=== PATIENT | female | born 1970 | race Caucasian/White ===

== ENCOUNTER → 2017-05-04 | Outpatient (CLI) | payer OTHER | LOC: FIMAGING 15:47 | PROVIDERS: ATTEND Obstetrics & Gynecology | DX: Z12.31 Encounter for screening mammogram for malignant neoplasm of breast (principal); Z80.3 Family history of malignant neoplasm of breast | CPT/HCPCS: G0202 ==

== ENCOUNTER → 2018-05-24 | Outpatient (CLI) | payer OTHER | LOC: FIMAGING 08:05 | PROVIDERS: ATTEND Obstetrics & Gynecology | DX: Z12.31 Encounter for screening mammogram for malignant neoplasm of breast (principal); Z80.3 Family history of malignant neoplasm of breast ==

== ENCOUNTER 2018-09-05 19:38 | Observation (INO) | payer OTHER ==
[2018-09-05] MEDS ORDERED: NS 1,000 ML IV ONE (19:58)
[2018-09-05] MEDS ORDERED: ASPIRIN 81 MG CHEWABLE TAB PO ONE (20:03)
--- NOTE | 2018-09-05 20:11 | EDPHY ---
H & P Stated Complaint: l chest wall pain since 6 p.m. worse with deep breath or movement Time Seen by Provider: 09/05/18 19:54 HPI/ROS: CHIEF COMPLAINT: Chest pain HISTORY OF PRESENT ILLNESS: The patient is a 47-year-old healthy female who comes to the emergency department complaining of sudden onset chest pain 615 this evening. She states that this happens to her periodically but usually resolves after few minutes. She was seen in the ER 2 years ago for similar symptoms and had a negative workup. She states that she has pain with deep inspiration. Also with movement of her shoulder. She denies trauma. She has not had any recent surgery procedures or travel. She does have an IUD the secreted hormones. She is not a smoker. No leg pain or swelling. No history of cardiac disease or pulmonary disease. No recent illness or fevers. Severity: Severe, sharp Modifying factors: Worse with deep inspiration or movement REVIEW OF SYSTEMS: Constitutional: denies: chills, fever, recent illness, recent injury EENTM: denies: blurred vision, double vision, nose congestion Respiratory: See HPI denies: cough, shortness of breath Cardiac: See HPI denies: irregular heart rate, lightheadedness, palpitations Gastrointestinal/Abdominal: denies: abdominal pain, diarrhea, nausea, vomiting, blood streaked stools Genitourinary: denies: dysuria, frequency, hematuria, pain Musculoskeletal: denies: joint pain, muscle pain Skin: denies: lesions, rash, jaundice, bruising Neurological: denies: headache, numbness, paresthesia, tingling, dizziness, weakness Hematologic/Lymphatic: denies: blood clots, easy bleeding, easy bruising Immunologic/allergic: denies: HIV/AIDS, transplant 10 systems reviewed and negative except as noted EXAM: GENERAL: Uncomfortable, moderate distress HEAD: Atraumatic, normocephalic. EYES: Pupils equal round and reactive to light, extraocular movements intact, sclera anicteric, conjunctiva are normal. ENT: TMs normal, nares patent, oropharynx clear without exudates. Moist mucous membranes. NECK: Normal range of motion, supple without lymphadenopathy or JVD. LUNGS: Breath sounds clear to auscultation bilaterally and equal. No wheezes rales or rhonchi. HEART: Tenderness to left chest wall, pain with movement of left arm, Regular rate and rhythm without murmurs, rubs or gallops. ABDOMEN: Soft, nontender, normoactive bowel sounds. No guarding, no rebound. No masses appreciated. BACK: No CVA tenderness, no spinal tenderness, step-offs or deformities EXTREMITIES: Normal range of motion, no pitting or edema. No clubbing or cyanosis. NEUROLOGICAL: Cranial nerves II through XII grossly intact. Normal speech, normal gait. 5/5 strength, normal movement in all extremities, normal sensation , normal reflexes PSYCH: Normal mood, normal affect. SKIN: Warm, dry, normal turgor, no visible rashes or lesions. Source: Patient, Old records Exam Limitations: No limitations - Personal History LMP (Females 10-55): IUD In Place Current Tetanus/Diphtheria Vaccine: Yes Current Tetanus Diphtheria and Acellular Pertussis (TDAP): Yes - Medical/Surgical History Hx Asthma: No Hx Chronic Respiratory Disease: No Hx Diabetes: No Hx Cardiac Disease: No Hx Renal Disease: No Hx Cirrhosis: No Hx Alcoholism: No Hx HIV/AIDS: No Hx Splenectomy or Spleen Trauma: No Other PMH: l foot surgery - Family History Significant Family History: No pertinent family hx - Social History Smoking Status: Never smoked Alcohol Use: None Constitutional: Initial Vital Signs Temperature (C) 36.8 C 09/05/18 19:45 Heart Rate 74 09/05/18 19:45 Respiratory Rate 16 09/05/18 19:45 Blood Pressure 132/92 H 09/05/18 19:45 O2 Sat (%) 99 09/05/18 19:45 O2 Delivery Mode Room Air Allergies/Adverse Reactions: No Known Allergies Allergy (Verified 09/05/18 19:50) Home Medications: Medication Instructions Recorded Ascorbic Acid [Vitamin C 250 mg 250 mg PO DAILY 09/05/18 (*)] Cholecalciferol Vit D3 [Vitamin D3 1,000 units PO DAILY 09/05/18 (*)] Cyanocobalamin [Vitamin B12 1,000 mcg IM .EVERY 8 WEEKS 09/05/18 1000MCG/ML (*)] Herbals/Supplements -Info Only 1 ea PO DAILY 09/05/18 Ibuprofen/Diphenhydramine Cit 1 each PO HS PRN 09/05/18 [Advil Pm Caplet] Medical Decision Making - Diagnostics EKG Interpretation: An EKG obtained and was read and documented in trace view. Please see trace view for full reading and report. Sinus rhythm, no acute ischemic changes, unchanged from previous A repeat EKG obtained and was read and documented in trace view. Please see trace view for full reading and report. Sinus rhythm, no acute ischemic changes , similar to previous Imaging Results: Imaging Impressions Chest X-Ray 09/05/18 20:09 Impression: Possible papillary muscle dysfunction. The chest x-ray looks similar to 2009. Results discussed with Dr. Adams. Imaging: Discussed imaging studies w/ manager cosmetic Radiologist ED Course/Re-evaluation: 9:00 p.m. the patient continues to have pain. Will repeat EKG. Initial lab work and imaging is reassuring. We engaged in shared decision making. We agreed to admit her for repeat troponins overnight possibly stress test in the morning. I will add Toradol. I discussed the case with Dr. Lopez who will admit. Differential Diagnosis: Partial list of the Differential diagnosis considered include but were not limited to; musculoskeletal pain, PE, acute coronary disease, pleurisy and although unlikely based on the history and physical exam, I also considered pneumothorax,. - Data Points Laboratory Results: Laboratory Results 09/05/18 18:50 09/05/18 18:50 09/05/18 09/05/18 09/05/18 19:54 18:50 18:50 WBC RBC Hgb Hct 38.8 % % (38.0-47.0) MCV MCH MCHC RDW Plt Count MPV Neut % (Auto) Lymph % (Auto) [place] % (Auto) Eos % (Auto) Baso % (Auto) Nucleat RBC Rel Count Absolute Neuts (auto) Absolute Lymphs (auto) Absolute Monos (auto) Absolute Eos (auto) Absolute Basos (auto) Absolute Nucleated RBC Immature Gran % Immature Gran # ESR 5 MM/HR MM/HR (0-20) PT INR APTT D-Dimer Sodium Potassium Chloride Carbon Dioxide Anion Gap BUN Creatinine Estimated GFR Glucose Calcium Total Bilirubin Conjugated Bilirubin Unconjugated Bilirubin AST ALT Alkaline Phosphatase POC Troponin I 0.00 ng/mL ng/mL (0.00-0.08) C-Reactive Protein < 5.0 mg/L mg/L (<10.0) Total Protein Albumin Lipase Beta HCG, Qual 09/05/18 09/05/18 09/05/18 18:50 18:50 18:50 WBC RBC Hgb Hct MCV MCH MCHC RDW Plt Count MPV Neut % (Auto) Lymph % (Auto) [place] % (Auto) Eos % (Auto) Baso % (Auto) Nucleat RBC Rel Count Absolute Neuts (auto) Absolute Lymphs (auto) Absolute Monos (auto) Absolute Eos (auto) Absolute Basos (auto) Absolute Nucleated RBC Immature Gran % Immature Gran # ESR PT 14.3 SEC SEC (12.0-15.0) INR 1.09 (0.83-1.16) APTT 30.3 SEC SEC (23.0-38.0) D-Dimer 0.36 ug/mLFEU ug/mLFEU (0.00-0.50) Sodium 136 mEq/L mEq/L (135-145) Potassium 4.4 mEq/L mEq/L (3.5-5.2) Chloride 102 mEq/L mEq/L (97-110) Carbon Dioxide 26 mEq/l mEq/l (22-31) Anion Gap 8 mEq/L mEq/L (6-14) BUN 21 mg/dL mg/dL (7-23) Creatinine 0.9 mg/dL mg/dL (0.6-1.0) Estimated GFR > 60 Glucose 74 mg/dL mg/dL (70-100) Calcium 9.9 mg/dL mg/dL (8.5-10.4) Total Bilirubin 0.4 mg/dL mg/dL (0.1-1.4) Conjugated Bilirubin 0.1 mg/dL mg/dL (0.0-0.5) Unconjugated Bilirubin 0.3 mg/dL mg/dL (0.0-1.1) AST 41 IU/L IU/L (14-46) ALT 32 IU/L IU/L (9-52) Alkaline Phosphatase 72 IU/L IU/L (38-126) POC Troponin I C-Reactive Protein Total Protein 8.0 g/dL g/dL (6.3-8.2) Albumin 4.5 g/dL g/dL (3.5-5.0) Lipase 167 IU/L IU/L (23-300) Beta HCG, Qual NEGATIVE 09/05/18 18:50 WBC 7.11 10^3/uL 10^3/uL (3.80-9.50) RBC 4.06 10^6/uL L 10^6/uL (4.18-5.33) Hgb 12.9 g/dL g/dL (12.6-16.3) Hct 39.0 % % (38.0-47.0) MCV 96.1 fL fL (81.5-99.8) MCH 31.8 pg pg (27.9-34.1) MCHC 33.1 g/dL g/dL (32.4-36.7) RDW 13.7 % % (11.5-15.2) Plt Count 262 10^3/uL 10^3/uL (150-400) MPV 10.0 fL fL (8.7-11.7) Neut % (Auto) 52.3 % % (39.3-74.2) Lymph % (Auto) 34.7 % % (15.0-45.0) [place] % (Auto) 10.4 % % (4.5-13.0) Eos % (Auto) 1.7 % % (0.6-7.6) Baso % (Auto) 0.6 % % (0.3-1.7) Nucleat RBC Rel Count 0.0 % % (0.0-0.2) Absolute Neuts (auto) 3.72 10^3/uL 10^3/uL (1.70-6.50) Absolute Lymphs (auto) 2.47 10^3/uL 10^3/uL (1.00-3.00) Absolute Monos (auto) 0.74 10^3/uL 10^3/uL (0.30-0.80) Absolute Eos (auto) 0.12 10^3/uL 10^3/uL (0.03-0.40) Absolute Basos (auto) 0.04 10^3/uL 10^3/uL (0.02-0.10) Absolute Nucleated RBC 0.00 10^3/uL 10^3/uL (0-0.01) Immature Gran % 0.3 % % (0.0-1.1) Immature Gran # 0.02 10^3/uL 10^3/uL (0.00-0.10) ESR PT INR APTT D-Dimer Sodium Potassium Chloride Carbon Dioxide Anion Gap BUN Creatinine Estimated GFR Glucose Calcium Total Bilirubin Conjugated Bilirubin Unconjugated Bilirubin AST ALT Alkaline Phosphatase POC Troponin I C-Reactive Protein Total Protein Albumin Lipase Beta HCG, Qual Medications Given: Ketorolac Tromethamine (Toradol) 15 mg IVP Q6H TALA Stop: 09/11/18 02:59 Last Admin: 09/06/18 03:47 Dose: 15 mg Morphine Sulfate (Morphine) 1 - 2 mg IVP Q3HRS PRN PRN Reason: Pain, Severe Unable to Take PO Stop: 09/15/18 21:44 Last Admin: 09/06/18 00:20 Dose: 2 mg Discontinued Medications Aspirin (Aspirin) 324 mg PO EDNOW ONE Stop: 09/05/18 20:04 Last Admin: 09/05/18 20:15 Dose: 324 mg Sodium Chloride (Ns) 1,000 mls @ 0 mls/hr IV EDNOW ONE; Wide Open PRN Reason: Protocol Stop: 09/05/18 19:59 Last Admin: 09/05/18 20:16 Dose: 1,000 mls Ketorolac Tromethamine (Toradol) 30 mg IVP EDNOW ONE Stop: 09/05/18 20:52 Last Admin: 09/05/18 21:03 Dose: 30 mg Morphine Sulfate (Morphine) 4 mg IVP EDNOW ONE Stop: 09/05/18 20:04 Last Admin: 09/05/18 20:16 Dose: 4 mg Point of Care Test Results: Chemistry 09/05/18 19:54 POC Troponin I 0.00 ng/mL ng/mL (0.00-0.08) Departure - Departure Disposition: [facility] Inpatient Acute Clinical Impression: Chest pain Qualifiers: Chest pain type: unspecified Qualified Code(s): R07.9 - Chest pain, unspecified Condition: Fair
--- NOTE | 2018-09-05 20:11 | CPEKG ---
Test Reason : OPEN Blood Pressure : / mmHG Vent. Rate : 067 BPM Atrial Rate : 066 BPM P-R Int : 150 ms QRS Dur : 080 ms QT Int : 403 ms P-R-T Axes : 052 047 018 degrees QTc Int : 426 ms Sinus rhythm Probable left atrial enlargement Anteroseptal infarct, old Confirmed by Ac Adams ([id number]) on 09/05/2018 8:11:17 PM Referred By: Ac Adams Confirmed By:Ac Adams
[2018-09-05 20:18] LABS: PLATELET COUNT 262 10^3/uL (150-400)
[2018-09-05 20:48] LABS: INR 1.09 (0.83-1.16); PROTIME(PATIENT) 14.3 SEC (12.0-15.0)
[2018-09-05] MEDS ORDERED: KETOROLAC 30 MG/1 ML SDV IVP ONE (20:51)
--- NOTE | 2018-09-05 21:07 | CPEKG ---
Test Reason : OPEN Blood Pressure : / mmHG Vent. Rate : 062 BPM Atrial Rate : 061 BPM P-R Int : 146 ms QRS Dur : 083 ms QT Int : 413 ms P-R-T Axes : 050 034 010 degrees QTc Int : 420 ms Sinus rhythm Probable left atrial enlargement Confirmed by Ac Adams ([id number]) on 09/05/2018 9:06:14 PM Referred By: Ac Adams Confirmed By:Ac Adams
[2018-09-05] MEDS ORDERED: ACETAMINOPHEN 325 MG TAB PO PRN (21:45)
[2018-09-05] MEDS ORDERED: ONDANSETRON 4 MG/2 ML VIAL IVP PRN (21:45)
[2018-09-05] MEDS ORDERED: ONDANSETRON DISINTEGRATING 4 MG TAB PO PRN (21:45)
[2018-09-05] MEDS ORDERED: NITROGLYCERIN 0.4 MG BTL SL PRN (21:45)
--- NOTE | 2018-09-05 22:18 | PDGENHP ---
History and Physical - Chief Complaint chest pain - History of Present Illness Patient is a healthy 47 yo F presenting with several hours of chest pain. She notes it began abruptly at 615 this evening, was located over her left chest and worse with inspiration or movement of any kind. She describes it as intermittently sharp and with a constant component as well along with it. She has had similar sxs in the past, the last time was worked up in the ER here in 2014 with labs and CTA which was negative. She states since then she has not had a similar episode although she states she has had brief episodes of chest pain intermittently for years. When the pain is present she will have associated dizziness frequently, she has not had syncope. The pain is not reproducible with palpation. It did improve some with morphine. She has not had any recent illness. She exercises for at least one hour daily and does not get chest pain typically with exertion. History Information - Allergies/Home Medication List Allergies/Adverse Reactions: No Known Allergies Allergy (Verified 09/05/18 19:50) Home Medications: Ascorbic Acid [Vitamin C 250 mg (*)] 250 mg PO DAILY 09/05/18 [Last Taken Unknown] Cholecalciferol Vit D3 [Vitamin D3 (*)] 1,000 units PO DAILY 09/05/18 [Last Taken Unknown] Cyanocobalamin [Vitamin B12 1000MCG/ML (*)] 1,000 mcg IM .EVERY 8 WEEKS [Last Taken 08/08/18] Herbals/Supplements -Info Only 1 ea PO DAILY 09/05/18 [Last Taken Unknown] Ibuprofen/Diphenhydramine Cit [Advil Pm Caplet] 1 each PO HS PRN 09/05/18 [Last Taken Unknown] I have personally reviewed and updated: family history, medical history, social history, surgical history - Past Medical History no pertinent PMH - Surgical History Additional surgical history: prior foot surgeries - Family History Positive for: cancer (mother with breast cancer father with melanoma) - Social History Smoking Status: Never smoked Alcohol Use: Occasionally Drug Use: None Additional social history: single mom, works out frequently Review of Systems Review of Systems: ROS: 10pt was reviewed & negative except for what was stated in HPI & below Physical Exam Physical Exam: Temp Pulse Resp BP Pulse Ox 36.9 C 65 18 112/79 96 09/05/18 22:10 09/05/18 22:10 09/05/18 22:10 09/05/18 22:10 09/05/18 22:10 Constitutional: no apparent distress, appears nourished Eyes: PERRL, anicteric sclera Ears, Nose, Mouth, Throat: moist mucous membranes, hearing normal Cardiovascular: regular rate and rhythym, no murmur, rub, or gallop, No edema Respiratory: no respiratory distress, no rales or rhonchi Gastrointestinal: normoactive bowel sounds, soft, non-tender abdomen Genitourinary: no bladder tenderness Skin: warm, normal color Musculoskeletal: full muscle strength Neurologic: AAOx3 Psychiatric: interacting appropriately, not anxious, not encephalopathic Lab Data & Imaging Review 09/05/18 18:50 09/05/18 18:50 WBC 7.11 10^3/uL (3.80-9.50) 09/05/18 18:50 RBC 4.06 10^6/uL (4.18-5.33) L 09/05/18 18:50 Hgb 12.9 g/dL (12.6-16.3) 09/05/18 18:50 Hct 38.8 % (38.0-47.0) 09/05/18 18:50 MCV 96.1 fL (81.5-99.8) 09/05/18 18:50 MCH 31.8 pg (27.9-34.1) 09/05/18 18:50 MCHC 33.1 g/dL (32.4-36.7) 09/05/18 18:50 RDW 13.7 % (11.5-15.2) 09/05/18 18:50 Plt Count 262 10^3/uL (150-400) 09/05/18 18:50 MPV 10.0 fL (8.7-11.7) 09/05/18 18:50 Neut % (Auto) 52.3 % (39.3-74.2) 09/05/18 18:50 Lymph % (Auto) 34.7 % (15.0-45.0) 09/05/18 18:50 Glynn % (Auto) 10.4 % (4.5-13.0) 09/05/18 18:50 Eos % (Auto) 1.7 % (0.6-7.6) 09/05/18 18:50 Baso % (Auto) 0.6 % (0.3-1.7) 09/05/18 18:50 Nucleat RBC Rel Count 0.0 % (0.0-0.2) 09/05/18 18:50 Absolute Neuts (auto) 3.72 10^3/uL (1.70-6.50) 09/05/18 18:50 Absolute Lymphs (auto) 2.47 10^3/uL (1.00-3.00) 09/05/18 18:50 Absolute Monos (auto) 0.74 10^3/uL (0.30-0.80) 09/05/18 18:50 Absolute Eos (auto) 0.12 10^3/uL (0.03-0.40) 09/05/18 18:50 Absolute Basos (auto) 0.04 10^3/uL (0.02-0.10) 09/05/18 18:50 Absolute Nucleated RBC 0.00 10^3/uL (0-0.01) 09/05/18 18:50 Immature Gran % 0.3 % (0.0-1.1) 09/05/18 18:50 Immature Gran # 0.02 10^3/uL (0.00-0.10) 09/05/18 18:50 PT 14.3 SEC (12.0-15.0) 09/05/18 18:50 INR 1.09 (0.83-1.16) 09/05/18 18:50 APTT 30.3 SEC (23.0-38.0) 09/05/18 18:50 D-Dimer 0.36 ug/mLFEU (0.00-0.50) 09/05/18 18:50 Sodium 136 mEq/L (135-145) 09/05/18 18:50 Potassium 4.4 mEq/L (3.5-5.2) 09/05/18 18:50 Chloride 102 mEq/L (97-110) 09/05/18 18:50 Carbon Dioxide 26 mEq/l (22-31) 09/05/18 18:50 Anion Gap 8 mEq/L (6-14) 09/05/18 18:50 BUN 21 mg/dL (7-23) 09/05/18 18:50 Creatinine 0.9 mg/dL (0.6-1.0) 09/05/18 18:50 Estimated GFR > 60 09/05/18 18:50 Glucose 74 mg/dL (70-100) 09/05/18 18:50 Calcium 9.9 mg/dL (8.5-10.4) 09/05/18 18:50 Total Bilirubin 0.4 mg/dL (0.1-1.4) 09/05/18 18:50 Conjugated Bilirubin 0.1 mg/dL (0.0-0.5) 09/05/18 18:50 Unconjugated Bilirubin 0.3 mg/dL (0.0-1.1) 09/05/18 18:50 AST 41 IU/L (14-46) 09/05/18 18:50 ALT 32 IU/L (9-52) 09/05/18 18:50 Alkaline Phosphatase 72 IU/L (38-126) 09/05/18 18:50 POC Troponin I 0.00 ng/mL (0.00-0.08) 09/05/18 19:54 C-Reactive Protein < 5.0 mg/L (<10.0) 09/05/18 18:50 Total Protein 8.0 g/dL (6.3-8.2) 09/05/18 18:50 Albumin 4.5 g/dL (3.5-5.0) 09/05/18 18:50 Lipase 167 IU/L (23-300) 09/05/18 18:50 Beta HCG, Qual NEGATIVE 09/05/18 18:50 Visualized and Interpreted Chest x-ray results: Yes Chest X-Ray results: no infiltrate, other (per radiology read ? papillary muscle dysfunction) Visualized and Interpreted EKG results: Yes EKG Interpretation: Positive for: normal sinsus rhythm Assessment & Plan Assessment: Chest pain (Acute) 47 yo F with no significant PMH presenting with chest pain # chest pain: with no known cardiac risk factors and history atypical, initial w /u negative including trop and ecg. Heart score of 2. Overall this seems unlikely to be ACS however patient with continued pain that she rates as severe and describes as positional. D dimer negative, cxr with concern of papillary muscle dysfunction. Query endo/myocarditis versus costochondritis or other inflammatory condition. Will check esr/crp, trend trops overnight, serial ecg and echocardiogram in am. Given persistence of sxs and patients concern, will ask for cardiology to consult in the am and consider further ischemic w/u. # dizziness: without vertigo or syncope, monitoring on tele as above # abnormal cxr: as above radiology noting possible papillary muscle dysfunction , echo in am # observation status Patient new to my care. Old records reviewed and summarized as above. Care plan reviewed with ER doctor as above.
[2018-09-06] MEDS: KETOROLAC 15 MG/1 ML SDV IVP SCH ×2 (03:47→10:04)
[2018-09-06 04:48] VITALS: BP 114/74
[2018-09-06] MEDS ORDERED: ASPIRIN 325 MG TAB PO SCH (09:00)
--- NOTE | 2018-09-06 10:33 | HOSPPROG ---
Hospitalist Progress Note Objective: Vital Signs Temp Pulse Resp BP Pulse Ox 37.1 C 57 L 17 114/74 97 09/06/18 04:47 09/06/18 04:47 09/06/18 04:47 09/06/18 04:47 09/06/18 04:47 09/05/18 09/06/18 09/07/18 05:59 05:59 05:59 Intake Total 1600 Balance 1600 PT 14.3 SEC (12.0-15.0) 09/05/18 18:50 INR 1.09 (0.83-1.16) 09/05/18 18:50 ICD10 Worksheet Patient Problems: Problems Problem Status Onset Chest pain Acute
--- NOTE | 2018-09-06 10:57 | ECHO ---
[email or web address] [address] Main: [phone] Fax: Transthoracic Echocardiogram Name: NOE LEONARDO MR#: [id number] Study Date: 09/06/2018 Study Time: 07:50 AM Date of : 1970 Age: 47 year(s) Height: 170.2 cm (67 in.) Weight: 56.7 kg (125 lb.) BSA: 1.66 m2 Gender: Female Examination: Echo Indication: Positional chest pain, (breast implants) Image Quality: Adequate Contrast: Requested by: Penny Sánchez BP: 104 mmHg/61 mmHg Heart Rate: Rhythm: Indication: Positional chest pain, (breast implants) Procedure Staff Audio/Visual Operator: Rika Mullen [facility] Reading Physician: Lorin Lopez MD Requesting Provider: Cherie Martinez Conclusions: Normal size left ventricle. No LV hypertrophy. Normal global systolic LV function. The ejection fraction is estimated to be 65-70 %. No regional wall motion abnormality. Normal diastolic LV function. Normal size right ventricle. Mild tricuspid regurgitation is present. The pulmonary artery pressure is normal. No pericardial effusion. No prior echo Measurements: Chambers Valvular Assessment AV/MV Valvular Assessment TV/PV Normal Normal Normal Name Value Range Name Value Range Name Value Range Ao Alessandra (MM): 3.1 cm (2.2 cm-3.7 AV Vmax: 1.28 m/s (1 m/s-1.7 TR Vmax: 2.39 mm/s ( - ) cm) m/s) TR PGmax: 23 mmHg ( - ) IVSd (2D): 0.8 cm (0.6 cm-1.1 AV meanP mmHg ( - ) syst. PAP: 28 mmHg ( - ) cm) MV E Vmax: 0.68 m/s ( - ) LVDd (2D): 4.7 cm (3.9 cm-5.3 MV A Vmax: 0.38 m/s ( - ) cm) MV E/A: 1.79 ( - ) LVDs (2D): 2.9 cm (2.1 cm-4 cm) LVPWd (2D): 0.7 cm ( - ) LVEF (BP): 78 % (>=55 %) EF Range: 65-70 % Continued Measurements: Chambers Valvular Assessment AV/MV Valvular Assessment TV/PV Patient: NOE LEONARDO Study Date: 09/06/2018 Page 1 of 2 07:50 AM Name Value Name Value Name Value LADs: 3.5 cm MV E' Septal: 0.11 m/s CVP (est.): 5 mmHg LADs Lon.1 cm MV E/E' Septal: 6.40 LA Area: 16.9 cm2 MV E/E' Lateral: 4.70 LA Volume: 42 ml LA Volume Index: 25.3 ml/m2 Additional Vessels Name Value Ao Ascendin.9 cm Findings: Left Ventricle: Normal size left ventricle. No LV hypertrophy. Normal global systolic LV function. The ejection fraction is estimated to be 65-70 %. No regional wall motion abnormality. Normal diastolic LV function. Right Ventricle: Normal size right ventricle. Normal RV function. There is a moderator band noted in the right ventricle. Left Atrium: The left atrium is normal in size. Right Atrium: The right atrium is normal in size. Mitral Valve: The mitral valve is normal in appearance and function. Trivial mitral valve regurgitation. Aortic Valve: The aortic valve is normal in appearance and function. There is no aortic valve regurgitation. Tricuspid Valve: The tricuspid valve is normal in appearance and function. Mild tricuspid regurgitation is present. The pulmonary artery pressure is normal. RVSP is 28mmHG.. Pulmonic Valve: Pulmonary valve not well visualized. Aorta: The aorta is normal. Pericardium: No pericardial effusion. (No Signature Object) Patient: NOE LEONARDO Study Date: 09/06/2018 Page 2 of 2 07:50 AM [id number]
[2018-09-06] MEDS ORDERED: PANTOPRAZOLE SODIUM 40 MG TAB PO SCH (11:45)
--- NOTE | 2018-09-06 12:06 | GCON ---
[f rep st] CONSULTATION CARDIOLOGY CONSULT DATE OF CONSULTATION: 09/06/2018 PRIMARY CARE DOCTOR: Dr. Milan Thompson. CHIEF COMPLAINT: Chest pain. HISTORY OF PRESENT ILLNESS: We were asked by Dr. Martinez to visit with Torrie. The patient is a pleas ant 47-year-old female with no known cardiovascular disease and no significant past medical history. Yesterday evening, she had sudden onset of significant chest discomfort. This was pleuritic. She fe lt like she could not take a deep breath. When she leaned forward, the pain improved. She did not h ave palpitations or syncope with this. She had worked out at high intensity earlier the other day wi thout chest pain or other cardiac symptoms. Because her chest pain got worse, she came to the ER. T roponin has been negative. She has gotten some relief with 2 doses of Toradol. She reports 2 similar episodes in the past, 1 was evaluated in the ER with a negative workup and only lasted for a few hours. The other was self limited. She has not had any recent chest trauma. As m entioned, she works out regularly without chest pain. She has not had any abdominal symptoms. Two w eeks ago, she had a cold for about 5 days without fever. REVIEW OF SYSTEMS: A full 10-point review of systems is performed and is negative, except that which is outlined in the history of present illness. ALLERGIES: No known drug allergies. PAST MEDICAL HISTORY: She has had several surgeries on her feet. OUTPATIENT MEDICATIONS: None prescription. She does take vitamin C, B vitamins, vitamin D3. SOCIAL HISTORY: The patient has an 8-year-old son. Her . She does not smoke cigarettes . She drinks 1 glass of wine nightly. She denies illicit drugs. FAMILY HISTORY: Her mother has breast cancer. Father melanoma. PHYSICAL EXAM: VITAL SIGNS: Blood pressure 114/74, heart rate 57. Oxygen saturation 97% on room ai r. She is afebrile. GENERAL: A well-appearing middle-aged female in no acute distress. HEENT: Sc lerae are clear and free of jaundice. Mucous membranes are moist. Normocephalic, atraumatic. Scler ae are nonicteric. CARDIOVASCULAR: JVP is less than 10. Carotids equal and 2+ bilateral without br uit. Regular rate and rhythm without murmur, rub or gallop. LUNGS: Clear to auscultation bilateral ly without wheezes, rhonchi or rales. ABDOMEN: Soft, nontender, nondistended without bruits, masses or hepatosplenomegaly. EXTREMITIES: Warm and well perfused without cyanosis, clubbing or edema. I ntact distal pulses. NEURO: Alert and oriented x3 without gross focal neurological deficits. LABORATORY DATA: White count is normal. ESR is 5. D-dimer negative. INR 1.1. A comprehensive met abolic panel is normal. Troponin is negative x3. C-reactive protein is less than 5. Albumin 4.5. Lipase 167. Beta HCG negative. EKG reviewed by me shows sinus rhythm with no ischemic changes. Second EKG is also normal. Chest x-ray reviewed by me shows no acute cardiopulmonary process. Echocardiogram reviewed by me shows normal biventricular size and systolic function with normal wall motion. No significant valvular disease. No pericardial effusion. ASSESSMENT AND PLAN: A 47-year-old female with chest pain most consistent with pericarditis. This i s not acute coronary syndrome. PE and aortic pathology are also highly unlikely given the above-ment ioned laboratory and imaging studies. She has responded well to intravenous Toradol. Would recommend a 5- to 7-day course of scheduled nonsteroidal, such as Indocin or ibuprofen, along w ith proton pump inhibitor. She was asked to exercise only lightly without high intensity for 7-10 da ys as well. We are happy to see her on an as-needed basis. Case discussed with Dr. Martinez. /[id number]/MODL
--- NOTE | 2018-09-06 13:23 | GDS ---
[f rep st] DISCHARGE SUMMARY CHIEF COMPLAINT: 1. Chest pain. 2. Pericarditis. CONSULTATIONS: Cardiology. HISTORY OF PRESENT ILLNESS: A 47-year-old female with no significant past medical history, presenting with chest pain pleuritic in nature. Worse with deep inspiration and improved when leaning forward. Had a cold 3 weeks ago. Salazar had 2 similar episodes of chest pain, one in which she was evaluated in the ER and had a negative workup. She does a high intensity workout daily including fit wall, spin classes without chest pain or shortness of breath. Pain was improved with Toradol. HOSPITAL COURSE BY PROBLEM: 1. Pericarditis: Recent URI. She had negative troponin, EKG. D-dimer was negative. She will be discharged on ibuprofen for the next week. Was advised to take with food and to take an acid abhishek. DISPOSITION: Patient is stable for discharge home. TIME SPENT ON DISCHARGE: Greater than 30 minutes at bedside counseling patient on pericarditis, medications, and discussing case with Dr. Lopez. NEW MEDICATIONS: Ibuprofen 600 mg t.i.d. PHYSICAL EXAMINATION: VITAL SIGNS: Temperature 37.1, blood pressure 114/74, heart rate in the 50s, respirations 17, 97% on room air. GENERAL: Well appearing, no acute distress. HEENT: PERRLA. Moist mucous membranes. CV: Regular rate and rhythm. CHEST WALL: Mild reproducible component of left chest. LUNGS: Clear. ABDOMEN: Soft, nontender. Positive bowel sounds. : No Rooney. MUSCULOSKELETAL: She is moving all 4 extremities. NEURO: 2 through 12 intact. PSYCH: Alert and oriented x3. /[id number]/MODL MTDD
--- NOTE | 2018-09-06 14:16 | ASDISCHSUM ---
Discharge Information Plan Status:Home with No Needs Medically Cleared to Leave:09/05/2018 Discharge Date:09/06/2018 01:03 PM CM D/C Disposition:Home, Routine, Self-Care ADT D/C Disposition:Home, Routine, Self-Care Projected Discharge Date:09/06/2018 01:03 PM Transportation at D/C: Discharge Delay Reason: Follow-Up Date:09/06/2018 01:03 PM Discharge Slot: Final Diagnosis: Placement Information Patient Contact Information Contact Name:MARICRUZMARIOZHOU Relationship:Mother Address: Work Phone: City: [facility] Phone: [facility]/[employer] Code: Email: Financial Information Financial Class:HMO and PPO Plans Primary Plan Desc:REYMUNDO MONDRAGON Primary Plan Number:[id number] Secondary Plan Desc: Secondary Plan Number: Assessment Information LACE LACE Length of stay for Answers: Less than 1 day current admission Acuity / Level of Answers: No Care: Did the patient have an inpatient admission? # of Emergency department Answers: 1-2 visits in the last 6 months Score: 1 Date Signed: 09/06/2018 02:15 PM Electronically Signed By:Mariya Moyer RN Intervention Information
== END 2018-09-06 13:03 | disposition home or self-care (01) ==
LOC: F2W 23:48
PROVIDERS: ADMIT Internal Medicine; ATTEND Internal Medicine
DX: I31.9 Disease of pericardium, unspecified (principal)
CPT/HCPCS: 71046; 93005; 93306; G0378; 84484-ER; 96374; J1885; J2270